=== PATIENT | male | born 1965 | race Caucasian/White ===

== ENCOUNTER 2020-11-28 17:11 | Inpatient (IN) ==
[2020-11-28 17:54] LABS: Basophils % 0.2 %; Hemoglobin 18.9 g/dL (12.9-16.9); Immature Granulocytes % 0.5 % (0-4); Lymphocytes # 0.5 K/mcL (0.6-4.6); Lymphocytes % 6.6 %; Mean Corpuscular HGB Conc 34.1 g/dL (31.6-35.5); Mean Corpuscular Hemoglobin 32.3 pg (28.0-33.3); Mean Corpuscular Volume 94.9 fL (83.0-100.0); Mean Platelet Volume 11.1 fL (9.4-12.4); Monocytes # 0.6 K/mcL (0.0-1.3); Monocytes % 7.5 %; Platelet Count 240 K/mcL (140-400); Red Blood Count 5.85 M/mcL (4.19-5.50); Red Cell Distribution Width 12.5 % (11.5-14.5); Segmented Neutrophils % 85.2 %; White Blood Count 8.2 K/mcL (4.3-11.1)
[2020-11-28 18:09] LABS: Hematocrit 55.5 % (37.5-50.1)
[2020-11-28 18:22] LABS: BUN/Creatinine Ratio 16 (6-26); Blood Urea Nitrogen 18 mg/dL (6-20); Calcium 8.7 mg/dL (8.6-10.3); Carbon Dioxide 26 mEq/L (23-29); Chloride 103 mEq/L (98-107); Glucose 126 mg/dL (70-105); Osmolality,Calculated 289 (280-300); Potassium 3.7 mEq/L (3.5-5.1); Sodium 138 mEq/L (136-145); eGFR For African Americans > 60 (> 60); eGFR For Non-African Americans > 60 (> 60)
[2020-11-28 18:45] LABS: Albumin 3.5 g/dL (3.5-5.7); Bilirubin,Direct 0.6 mg/dL (0.0-0.2); Bilirubin,Indirect 0.5 mg/dL (0.0-1.0); Bilirubin,Total 1.1 mg/dL (0.3-1.0); Globulin 3.5 g/dL (2.4-3.5); Magnesium 2.3 mg/dL (1.6-2.6); Phosphorous 2.2 mg/dL (2.7-4.5)
[2020-11-28 18:46] LABS: INR 1.2; Prothrombin Time 13.7 Seconds (9.4-12.1)
[2020-11-28 18:46] LABS: Troponin I 0.04 ng/mL (< 0.04)
[2020-11-28 18:48] LABS: Activated Partial Thrombo Time 32.6 Seconds (26.0-36.0)
[2020-11-28 18:56] LABS: Adenovirus Not Detected (Not Detect); Bordetella Pertussis Not Detected (Not Detect); Chlamydophila pneumoniae Not Detected (Not Detect); Coronavirus 229E Not Detected (Not Detect); Coronavirus HKU1 Not Detected (Not Detect); Coronavirus NL63 Not Detected (Not Detect); Coronavirus OC43 Not Detected (Not Detect); Human Metapneumovirus Not Detected (Not Detect); Human Rhinovirus/Enterovirus Not Detected (Not Detect); Influenza A Subtype 2009 H1 Not Detected (Not Detect); Influenza B Not Detected (Not Detect); Mycoplasma pneumoniae Not Detected (Not Detect); Parainfluenza Virus 1 Not Detected (Not Detect); Parainfluenza Virus 2 Not Detected (Not Detect); Parainfluenza Virus 3 Not Detected (Not Detect); Parainfluenza Virus 4 Not Detected (Not Detect); Respiratory Syncytial Virus Not Detected (Not Detect); SARS-CoV-2 DETECTED (Not Detect)
[2020-11-28] MEDS ORDERED: Azithromycin 500 MG in 0.9 % Sodium Chloride 250 ML IVPB ONE (19:19)
[2020-11-28] MEDS ORDERED: Perflutren Lipid Microsphere 1.3 ML in 0.9 % Sodium Chloride 8.7 ML IVP PRN (20:17)
[2020-11-28] MEDS ORDERED: Isovue-370 500 ML BOTTLE IVP ONE (20:17)
[2020-11-28] MEDS ORDERED: Aspirin 325 MG TABLET PO ONE (20:37)
[2020-11-28] MEDS ORDERED: Nitroglycerin 0.4 MG TAB.SUBL SL PRN (20:51)
[2020-11-28] MEDS ORDERED: Melatonin 3 MG TABLET PO PRN (23:27)
[2020-11-28] MEDS ORDERED: Ondansetron 4 MG/2 ML VIAL IVP PRN (23:27)
[2020-11-28] MEDS ORDERED: Naloxone 0.4 MG/ML INJ IVP PRN (23:27)
[2020-11-29 01:23] LABS: Estimated Average Glucose 114 mg/dl; Hemoglobin A1C 5.6 %
[2020-11-29 01:37] LABS: Hematocrit 52.3 % (37.5-50.1); Hemoglobin 17.5 g/dL (12.9-16.9); Mean Corpuscular HGB Conc 33.5 g/dL (31.6-35.5); Mean Corpuscular Hemoglobin 31.9 pg (28.0-33.3); Mean Corpuscular Volume 95.3 fL (83.0-100.0); Mean Platelet Volume 11.1 fL (9.4-12.4); Platelet Count 241 K/mcL (140-400); Red Blood Count 5.49 M/mcL (4.19-5.50); Red Cell Distribution Width 12.6 % (11.5-14.5); White Blood Count 7.4 K/mcL (4.3-11.1)
[2020-11-29 01:40] LABS: BUN/Creatinine Ratio 16 (6-26); Blood Urea Nitrogen 20 mg/dL (6-20); Calcium 8.5 mg/dL (8.6-10.3); Carbon Dioxide 25 mEq/L (23-29); Chloride 106 mEq/L (98-107); Glucose 139 mg/dL (70-105); Osmolality,Calculated 293 (280-300); Potassium 3.9 mEq/L (3.5-5.1); Sodium 139 mEq/L (136-145); eGFR For African Americans > 60 (> 60); eGFR For Non-African Americans > 60 (> 60)
[2020-11-29 01:43] LABS: C-Reactive Protein 189 mg/L (Less than 10); Lactate Dehydrogenase 486 Units/L (140-271)
[2020-11-29 01:59] LABS: Ferritin 1213 ng/mL (20-250)
[2020-11-29] MEDS ORDERED: *HR* Enoxaparin 40 MG/0.4 ML SYRINGE SQ SCH (06:00)
[2020-11-29 07:12] LABS: Troponin I 0.05 ng/mL (< 0.04)
[2020-11-29] MEDS ORDERED: *HR* Heparin 5,000 UNIT/ML VIAL IVP PRN ×2 (07:22)
[2020-11-29] MEDS ORDERED: *HR* Heparin 5,000 UNIT/ML VIAL IVP ONE (07:22)
[2020-11-29] MEDS: Aspirin 81 MG TAB.CHEW PO SCH (09:35)
[2020-11-29] MEDS: Heparin 25,000UNIT/250ML 1/2NS 25,000 UNIT/250 ML IV.SOLN IVC SCH (09:36)
[2020-11-29 09:39] LABS: Hematocrit 54.7 % (37.5-50.1); Hemoglobin 18.1 g/dL (12.9-16.9); Mean Corpuscular HGB Conc 33.1 g/dL (31.6-35.5); Mean Corpuscular Hemoglobin 32.3 pg (28.0-33.3); Mean Corpuscular Volume 97.5 fL (83.0-100.0); Mean Platelet Volume 10.9 fL (9.4-12.4); Platelet Count 248 K/mcL (140-400); Red Blood Count 5.61 M/mcL (4.19-5.50); Red Cell Distribution Width 12.7 % (11.5-14.5); White Blood Count 8.7 K/mcL (4.3-11.1)
[2020-11-29 10:00] LABS: Heparin anti-factor XA UFH 0.12 IU/mL (0.30-0.70); INR 1.2; Prothrombin Time 13.9 Seconds (9.4-12.1)
[2020-11-29 10:56] LABS: Albumin 3.4 g/dL (3.5-5.7); Albumin/Globulin Ratio 0.9 (1.1-2.2); Bilirubin,Direct 0.6 mg/dL (0.0-0.2); Bilirubin,Indirect 0.3 mg/dL (0.0-1.0); Bilirubin,Total 0.9 mg/dL (0.3-1.0); Globulin 3.6 g/dL (2.4-3.5)
[2020-11-29] MEDS: Ipratropium 1 PUFF INHALER IH PRN (16:08)
[2020-11-29] MEDS ORDERED: Remdesivir 200 MG in 0.9 % Sodium Chloride 100 ML IVPB ONE (18:00)
[2020-11-29] MEDS ORDERED: Furosemide 20 MG/2 ML VIAL IVP ONE (18:43)
[2020-11-29] MEDS ORDERED: Perflutren Lipid Microsphere 1.3 ML in 0.9 % Sodium Chloride 8.7 ML IVP PRN (18:44)
[2020-11-30 05:13] LABS: Basophils % 0.5 %; Hematocrit 52.3 % (37.5-50.1); Hemoglobin 17.6 g/dL (12.9-16.9); Immature Granulocytes % 0.6 % (0-4); Lymphocytes # 0.5 K/mcL (0.6-4.6); Lymphocytes % 6.1 %; Mean Corpuscular HGB Conc 33.7 g/dL (31.6-35.5); Mean Corpuscular Hemoglobin 32.7 pg (28.0-33.3); Mean Platelet Volume 11.1 fL (9.4-12.4); Monocytes # 0.6 K/mcL (0.0-1.3); Monocytes % 7.1 %; Platelet Count 334 K/mcL (140-400); Red Blood Count 5.39 M/mcL (4.19-5.50); Red Cell Distribution Width 13.2 % (11.5-14.5); Segmented Neutrophils % 85.7 %; White Blood Count 8.8 K/mcL (4.3-11.1)
[2020-11-30 05:23] LABS: Neutrophils # 7.5 K/mcL (1.6-8.9)
[2020-11-30 05:39] LABS: Albumin 3.2 g/dL (3.5-5.7); Albumin/Globulin Ratio 0.8 (1.1-2.2); Bilirubin,Direct 0.3 mg/dL (0.0-0.2); Bilirubin,Indirect 0.5 mg/dL (0.0-1.0); Bilirubin,Total 0.8 mg/dL (0.3-1.0); Calcium 8.9 mg/dL (8.6-10.3); Globulin 3.8 g/dL (2.4-3.5); Potassium 3.8 mEq/L (3.5-5.1)
[2020-11-30 05:43] LABS: Macrocytosis Present (Not Present); Platelet Estimate Normal (Normal); Toxic Granulation Present (Not Present)
[2020-11-30] MEDS: Heparin 25,000UNIT/250ML 1/2NS 25,000 UNIT/250 ML IV.SOLN IVC SCH ×2 (06:18→23:23)
[2020-11-30] MEDS: Cholecalciferol (D-3) 1,000 UNIT (25MCG) TABLET PO SCH (08:50)
[2020-11-30] MEDS: Aspirin 81 MG TAB.CHEW PO SCH (08:50)
[2020-11-30] MEDS: Dexmedetomidine HCl 400 MCG/100 ML MLS IVC SCH (09:24)
[2020-11-30] MEDS: Remdesivir 100 MG in 0.9 % Sodium Chloride 100 ML IVPB SCH (17:45)
[2020-12-01] MEDS: Ipratropium 1 PUFF INHALER IH PRN (00:05)
[2020-12-01] MEDS: Dexmedetomidine HCl 400 MCG/100 ML MLS IVC SCH ×2 (02:13→14:53)
[2020-12-01 03:45] LABS: Basophils % 0.4 %; Hematocrit 54.2 % (37.5-50.1); Hemoglobin 17.7 g/dL (12.9-16.9); Immature Granulocytes % 0.8 % (0-4); Lymphocytes # 0.5 K/mcL (0.6-4.6); Lymphocytes % 4.6 %; Mean Corpuscular HGB Conc 32.7 g/dL (31.6-35.5); Mean Corpuscular Hemoglobin 32.1 pg (28.0-33.3); Mean Corpuscular Volume 98.2 fL (83.0-100.0); Monocytes # 0.7 K/mcL (0.0-1.3); Monocytes % 6.4 %; Neutrophils # 9.9 K/mcL (1.6-8.9); Platelet Count 369 K/mcL (140-400); Red Blood Count 5.52 M/mcL (4.19-5.50); Segmented Neutrophils % 87.8 %; White Blood Count 11.3 K/mcL (4.3-11.1)
[2020-12-01 03:51] LABS: VBG HCO3 23 mEq/L (21-27); VBG PCO2 30 mmHg (41-51); VBG PH 7.49 pH Units (7.32-7.42); VBG PO2 107 mmHg (25-50)
[2020-12-01 03:59] LABS: Basophils # 0.1 K/mcL (0.0-0.2)
[2020-12-01 04:18] LABS: Large Platelets Present (Not Present); Platelet Estimate Normal (Normal); Reactive Lymphocytes Present (Not Present); Toxic Granulation Present (Not Present)
[2020-12-01 04:42] LABS: Alanine Aminotransferase 55 Units/L (7-52); Albumin/Globulin Ratio 0.7 (1.1-2.2); Alkaline Phosphatase 86 Units/L (34-104); Aspartate Amino Transferase 45 Units/L (13-39); Bilirubin,Direct 0.3 mg/dL (0.0-0.2); Bilirubin,Indirect 0.4 mg/dL (0.0-1.0); Bilirubin,Total 0.7 mg/dL (0.3-1.0); Calcium 8.6 mg/dL (8.6-10.3); Globulin 4.1 g/dL (2.4-3.5); Total Protein 7.1 g/dL (6.4-8.9); eGFR For African Americans > 60 (> 60); eGFR For Non-African Americans 52 (> 60)
[2020-12-01 04:43] LABS: BUN/Creatinine Ratio 33 (6-26); Blood Urea Nitrogen 47 mg/dL (6-20); Carbon Dioxide 18 mEq/L (23-29); Chloride 107 mEq/L (98-107); Glucose 136 mg/dL (70-105); Osmolality,Calculated 302 (280-300); Potassium 4.2 mEq/L (3.5-5.1); Sodium 139 mEq/L (136-145)
[2020-12-01] MEDS: Dexamethasone Sodium Phos/PF 10 MG/ML VIAL IVP SCH (09:04)
[2020-12-01] MEDS: Cholecalciferol (D-3) 1,000 UNIT (25MCG) TABLET PO SCH (09:05)
[2020-12-01] MEDS: Aspirin 81 MG TAB.CHEW PO SCH (09:05)
[2020-12-01 11:22] LABS: Fibrinogen 727 mg/dL (169-393)
[2020-12-01 11:23] LABS: D-Dimer 789 ng/mLFEU (0-500)
[2020-12-01] MEDS: *HR* Heparin 5,000 UNIT/ML VIAL SQ SCH ×2 (15:32→20:50)
[2020-12-01] MEDS: Remdesivir 100 MG in 0.9 % Sodium Chloride 100 ML IVPB SCH (18:38)
[2020-12-02 00:31] LABS: Bilirubin,Urine Negative (Negative); Blood,Urine Negative (Negative); Clarity,Urine Clear (Clear); Color,Urine Yellow (Yellow); Glucose,Urine (UA) Normal (Normal); Ketones,Urine Negative (Negative); Leukocyte Esterase,Urine Negative (Negative); Mucus,Urine Few per lpf (None-Few); Nitrite,Urine Negative (Negative); PH,Urine 5.5 pH Units (5.0-8.0); Protein,Urine 50 mg/dL (Neg-Trace); RBC,Urine 0-3 per hpf (0-3); Specific Gravity,Urine > 1.030 (1.010-1.025); Urobilinogen,Urine Normal (Normal); WBC,Urine 0-3 per hpf (0-3)
[2020-12-02] MEDS: Dexmedetomidine HCl 400 MCG/100 ML MLS IVC SCH ×2 (03:00→07:19)
[2020-12-02] MEDS: *HR* Heparin 5,000 UNIT/ML VIAL SQ SCH ×3 (05:39→21:17)
[2020-12-02] MEDS: Aspirin 81 MG TAB.CHEW PO SCH (08:54)
[2020-12-02] MEDS: Dexamethasone Sodium Phos/PF 10 MG/ML VIAL IVP SCH (08:55)
[2020-12-02] MEDS: Cholecalciferol (D-3) 1,000 UNIT (25MCG) TABLET PO SCH (08:55)
[2020-12-02 09:43] LABS: VBG HCO3 25 mEq/L (21-27); VBG PCO2 37 mmHg (41-51); VBG PH 7.43 pH Units (7.32-7.42); VBG PO2 118 mmHg (25-50)
[2020-12-02 09:54] LABS: Basophils % 0.3 %; Eosinophils % 0.1 %; Hemoglobin 17.6 g/dL (12.9-16.9); Immature Granulocytes % 0.6 % (0-4); Lymphocytes # 0.5 K/mcL (0.6-4.6); Lymphocytes % 3.7 %; Mean Corpuscular HGB Conc 32.6 g/dL (31.6-35.5); Mean Corpuscular Volume 98.2 fL (83.0-100.0); Mean Platelet Volume 10.9 fL (9.4-12.4); Monocytes % 7.3 %; Neutrophils # 11.7 K/mcL (1.6-8.9); Platelet Count 390 K/mcL (140-400); Red Cell Distribution Width 12.8 % (11.5-14.5); White Blood Count 13.2 K/mcL (4.3-11.1)
[2020-12-02 11:13] LABS: Albumin 2.9 g/dL (3.5-5.7); Albumin/Globulin Ratio 0.9 (1.1-2.2); Bilirubin,Direct 0.3 mg/dL (0.0-0.2); Bilirubin,Indirect 0.4 mg/dL (0.0-1.0); Bilirubin,Total 0.7 mg/dL (0.3-1.0); Globulin 3.2 g/dL (2.4-3.5); Total Protein 6.1 g/dL (6.4-8.9)
[2020-12-02 11:14] LABS: Alanine Aminotransferase 44 Units/L (7-52); Albumin 2.9 g/dL (3.5-5.7); Albumin/Globulin Ratio 0.9 (1.1-2.2); Alkaline Phosphatase 71 Units/L (34-104); Aspartate Amino Transferase 38 Units/L (13-39); BUN/Creatinine Ratio 35 (6-26); Bilirubin,Total 0.7 mg/dL (0.3-1.0); Blood Urea Nitrogen 46 mg/dL (6-20); Calcium 8.6 mg/dL (8.6-10.3); Carbon Dioxide 25 mEq/L (23-29); Chloride 109 mEq/L (98-107); Globulin 3.3 g/dL (2.4-3.5); Glucose 120 mg/dL (70-105); Osmolality,Calculated 305 (280-300); Sodium 141 mEq/L (136-145); Total Protein 6.2 g/dL (6.4-8.9); eGFR For African Americans > 60 (> 60); eGFR For Non-African Americans 57 (> 60)
[2020-12-02] MEDS: FLUoxetine HCl Oral Soln 20 MG/5 ML UDC PO SCH (12:33)
[2020-12-02] MEDS: Remdesivir 100 MG in 0.9 % Sodium Chloride 100 ML IVPB SCH (16:53)
[2020-12-02] MEDS ORDERED: Furosemide 20 MG/2 ML VIAL IVP ONE (17:45)
[2020-12-03] MEDS: *HR* Heparin 5,000 UNIT/ML VIAL SQ SCH ×3 (06:03→20:16)
[2020-12-03 08:09] LABS: Blood Urea Nitrogen 43 mg/dL (6-20); Calcium 8.3 mg/dL (8.6-10.3); Carbon Dioxide 27 mEq/L (23-29); Chloride 109 mEq/L (98-107); Glucose 123 mg/dL (70-105); Magnesium 2.5 mg/dL (1.6-2.6); Osmolality,Calculated 304 (280-300); Phosphorous 3.5 mg/dL (2.7-4.5); Potassium 4.2 mEq/L (3.5-5.1); Sodium 141 mEq/L (136-145)
[2020-12-03 08:20] LABS: VBG HCO3 28 mEq/L (21-27); VBG PCO2 43 mmHg (41-51); VBG PH 7.42 pH Units (7.32-7.42); VBG PO2 153 mmHg (25-50)
[2020-12-03 08:24] LABS: Basophils % 0.2 %; Eosinophils % 0.1 %; Hemoglobin 17.1 g/dL (12.9-16.9); Immature Granulocytes % 0.6 % (0-4); Lymphocytes # 0.5 K/mcL (0.6-4.6); Lymphocytes % 3.8 %; Mean Corpuscular HGB Conc 32.9 g/dL (31.6-35.5); Mean Corpuscular Volume 97.4 fL (83.0-100.0); Mean Platelet Volume 11.1 fL (9.4-12.4); Monocytes # 0.9 K/mcL (0.0-1.3); Monocytes % 6.6 %; Neutrophils # 12.3 K/mcL (1.6-8.9); Platelet Count 374 K/mcL (140-400); Red Blood Count 5.34 M/mcL (4.19-5.50); Red Cell Distribution Width 12.6 % (11.5-14.5); Segmented Neutrophils % 88.7 %; White Blood Count 13.9 K/mcL (4.3-11.1)
[2020-12-03 08:52] LABS: BUN/Creatinine Ratio 34 (6-26); eGFR For African Americans > 60 (> 60); eGFR For Non-African Americans > 60 (> 60)
[2020-12-03] MEDS: Dexmedetomidine HCl 400 MCG/100 ML MLS IVC SCH ×2 (09:17→20:16)
[2020-12-03] MEDS: Dexamethasone Sodium Phos/PF 10 MG/ML VIAL IVP SCH (09:17)
[2020-12-03] MEDS: FLUoxetine HCl Oral Soln 20 MG/5 ML UDC PO SCH (09:17)
[2020-12-03] MEDS: Aspirin 81 MG TAB.CHEW PO SCH (09:18)
[2020-12-03] MEDS: Cholecalciferol (D-3) 1,000 UNIT (25MCG) TABLET PO SCH (09:18)
[2020-12-03 09:41] LABS: Albumin 2.8 g/dL (3.5-5.7); Albumin/Globulin Ratio 0.9 (1.1-2.2); Bilirubin,Direct 0.2 mg/dL (0.0-0.2); Bilirubin,Indirect 0.6 mg/dL (0.0-1.0); Bilirubin,Total 0.8 mg/dL (0.3-1.0); Total Protein 5.8 g/dL (6.4-8.9)
[2020-12-03] MEDS: Remdesivir 100 MG in 0.9 % Sodium Chloride 100 ML IVPB SCH (17:26)
[2020-12-03] MEDS ORDERED: Furosemide 20 MG/2 ML VIAL IVP ONE (18:14)
[2020-12-04] MEDS ORDERED: GuaiFENesin Liq 200 MG/10 ML UDC PO PRN (03:14)
[2020-12-04] MEDS ORDERED: Benzonatate 100 MG CAPSULE PO PRN (03:29)
[2020-12-04] MEDS: *HR* Heparin 5,000 UNIT/ML VIAL SQ SCH ×3 (05:38→20:37)
[2020-12-04] MEDS: FLUoxetine HCl Oral Soln 20 MG/5 ML UDC PO SCH (07:58)
[2020-12-04] MEDS: Dexamethasone Sodium Phos/PF 10 MG/ML VIAL IVP SCH (07:58)
[2020-12-04] MEDS: Cholecalciferol (D-3) 1,000 UNIT (25MCG) TABLET PO SCH (07:58)
[2020-12-04] MEDS: Aspirin 81 MG TAB.CHEW PO SCH (07:58)
[2020-12-04 08:33] LABS: Basophils % 0.2 %; Eosinophils # 0.1 K/mcL (0.0-0.6); Eosinophils % 0.4 %; Hematocrit 50.8 % (37.5-50.1); Hemoglobin 17.1 g/dL (12.9-16.9); Immature Granulocytes % 0.5 % (0-4); Lymphocytes # 0.5 K/mcL (0.6-4.6); Lymphocytes % 3.9 %; Mean Corpuscular HGB Conc 33.7 g/dL (31.6-35.5); Mean Corpuscular Hemoglobin 33.4 pg (28.0-33.3); Mean Corpuscular Volume 99.2 fL (83.0-100.0); Monocytes # 0.8 K/mcL (0.0-1.3); Monocytes % 6.2 %; Neutrophils # 11.8 K/mcL (1.6-8.9); Platelet Count 277 K/mcL (140-400); Red Blood Count 5.12 M/mcL (4.19-5.50); Red Cell Distribution Width 12.4 % (11.5-14.5); Segmented Neutrophils % 88.8 %; White Blood Count 13.2 K/mcL (4.3-11.1)
[2020-12-04 08:41] LABS: VBG HCO3 27 mEq/L (21-27); VBG Ionized Calcium 1.12 mmol/L (1.15-1.35); VBG PCO2 44 mmHg (41-51); VBG PO2 190 mmHg (25-50)
[2020-12-04 08:46] LABS: INR 1.1; Prothrombin Time 13.2 Seconds (9.4-12.1)
[2020-12-04 08:48] LABS: Activated Partial Thrombo Time 28.5 Seconds (26.0-36.0)
[2020-12-04 08:53] LABS: Alanine Aminotransferase 50 Units/L (7-52); Albumin 2.8 g/dL (3.5-5.7); Albumin/Globulin Ratio 1.1 (1.1-2.2); Alkaline Phosphatase 61 Units/L (34-104); Aspartate Amino Transferase 27 Units/L (13-39); BUN/Creatinine Ratio 32 (6-26); Bilirubin,Direct 0.1 mg/dL (0.0-0.2); Bilirubin,Indirect 0.7 mg/dL (0.0-1.0); Bilirubin,Total 0.8 mg/dL (0.3-1.0); Blood Urea Nitrogen 44 mg/dL (6-20); Calcium 8.3 mg/dL (8.6-10.3); Carbon Dioxide 27 mEq/L (23-29); Chloride 107 mEq/L (98-107); Globulin 2.5 g/dL (2.4-3.5); Glucose 119 mg/dL (70-105); Magnesium 2.4 mg/dL (1.6-2.6); Osmolality,Calculated 298 (280-300); Phosphorous 3.5 mg/dL (2.7-4.5); Potassium 4.2 mEq/L (3.5-5.1); Sodium 138 mEq/L (136-145); Total Protein 5.3 g/dL (6.4-8.9); eGFR For African Americans > 60 (> 60); eGFR For Non-African Americans 53 (> 60)
[2020-12-04] MEDS ORDERED: Nitroglycerin 0.4 MG TAB.SUBL SL PRN (11:49)
[2020-12-04] MEDS ORDERED: Ipratropium 1 PUFF INHALER IH PRN (11:49)
[2020-12-04] MEDS ORDERED: Naloxone 0.4 MG/ML INJ IVP PRN (11:49)
[2020-12-04] MEDS ORDERED: Ondansetron 4 MG/2 ML VIAL IVP PRN (11:49)
[2020-12-04] MEDS ORDERED: Melatonin 3 MG TABLET PO PRN (11:49)
[2020-12-05 01:42] LABS: VBG Ionized Calcium 1.19 mmol/L (1.15-1.35)
[2020-12-05 01:42] LABS: Basophils % 0.1 %; Hemoglobin 16.7 g/dL (12.9-16.9); Immature Granulocytes % 0.9 % (0-4); Lymphocytes # 0.5 K/mcL (0.6-4.6); Lymphocytes % 3.5 %; Mean Corpuscular HGB Conc 32.7 g/dL (31.6-35.5); Mean Corpuscular Hemoglobin 31.4 pg (28.0-33.3); Mean Corpuscular Volume 95.9 fL (83.0-100.0); Monocytes # 0.7 K/mcL (0.0-1.3); Monocytes % 4.9 %; Neutrophils # 13.6 K/mcL (1.6-8.9); Platelet Count 340 K/mcL (140-400); Red Blood Count 5.32 M/mcL (4.19-5.50); Red Cell Distribution Width 12.4 % (11.5-14.5); Segmented Neutrophils % 90.6 %
[2020-12-05 02:05] LABS: Alanine Aminotransferase 44 Units/L (7-52); Albumin 2.9 g/dL (3.5-5.7); Alkaline Phosphatase 63 Units/L (34-104); Aspartate Amino Transferase 24 Units/L (13-39); BUN/Creatinine Ratio 31 (6-26); Bilirubin,Total 0.7 mg/dL (0.3-1.0); Blood Urea Nitrogen 40 mg/dL (6-20); Calcium 8.4 mg/dL (8.6-10.3); Carbon Dioxide 27 mEq/L (23-29); Chloride 105 mEq/L (98-107); Globulin 2.8 g/dL (2.4-3.5); Glucose 154 mg/dL (70-105); Magnesium 2.5 mg/dL (1.6-2.6); Osmolality,Calculated 297 (280-300); Phosphorous 3.5 mg/dL (2.7-4.5); Potassium 4.8 mEq/L (3.5-5.1); Sodium 137 mEq/L (136-145); Total Protein 5.7 g/dL (6.4-8.9); eGFR For African Americans > 60 (> 60); eGFR For Non-African Americans 59 (> 60)
[2020-12-05] MEDS: *HR* Heparin 5,000 UNIT/ML VIAL SQ SCH ×3 (05:33→21:39)
[2020-12-05] MEDS: Dexamethasone Sodium Phos/PF 10 MG/ML VIAL IVP SCH (07:34)
[2020-12-05] MEDS: FLUoxetine HCl Oral Soln 20 MG/5 ML UDC PO SCH (07:34)
[2020-12-05] MEDS: Aspirin 81 MG TAB.CHEW PO SCH (07:34)
[2020-12-05] MEDS: Cholecalciferol (D-3) 1,000 UNIT (25MCG) TABLET PO SCH (07:34)
[2020-12-05] MEDS ORDERED: Dexamethasone Sodium Phos/PF 10 MG/ML VIAL IVP SCH (09:00)
[2020-12-06 01:32] LABS: Hematocrit 51.3 % (37.5-50.1); Hemoglobin 17.3 g/dL (12.9-16.9); Mean Corpuscular HGB Conc 33.7 g/dL (31.6-35.5); Mean Corpuscular Hemoglobin 32.4 pg (28.0-33.3); Mean Corpuscular Volume 96.1 fL (83.0-100.0); Mean Platelet Volume 11.2 fL (9.4-12.4); Platelet Count 310 K/mcL (140-400); Red Blood Count 5.34 M/mcL (4.19-5.50); Red Cell Distribution Width 12.3 % (11.5-14.5); White Blood Count 13.5 K/mcL (4.3-11.1)
[2020-12-06 01:35] LABS: BUN/Creatinine Ratio 28 (6-26); Blood Urea Nitrogen 41 mg/dL (6-20); Calcium 8.6 mg/dL (8.6-10.3); Carbon Dioxide 25 mEq/L (23-29); Chloride 105 mEq/L (98-107); Glucose 144 mg/dL (70-105); Osmolality,Calculated 297 (280-300); Potassium 4.4 mEq/L (3.5-5.1); Sodium 137 mEq/L (136-145); eGFR For African Americans > 60 (> 60); eGFR For Non-African Americans 51 (> 60)
[2020-12-06] MEDS: *HR* Heparin 5,000 UNIT/ML VIAL SQ SCH ×3 (05:12→21:32)
[2020-12-06] MEDS: Cholecalciferol (D-3) 1,000 UNIT (25MCG) TABLET PO SCH (07:26)
[2020-12-06] MEDS: Aspirin 81 MG TAB.CHEW PO SCH (07:26)
[2020-12-06] MEDS: Dexamethasone Sodium Phos/PF 10 MG/ML VIAL IVP SCH (07:27)
[2020-12-06] MEDS: FLUoxetine HCl Oral Soln 20 MG/5 ML UDC PO SCH (07:27)
[2020-12-07] MEDS: *HR* Heparin 5,000 UNIT/ML VIAL SQ SCH ×3 (05:14→22:03)
[2020-12-07] MEDS: Cholecalciferol (D-3) 1,000 UNIT (25MCG) TABLET PO SCH (07:30)
[2020-12-07] MEDS: Aspirin 81 MG TAB.CHEW PO SCH (07:30)
[2020-12-07] MEDS: Dexamethasone Sodium Phos/PF 10 MG/ML VIAL IVP SCH (07:30)
[2020-12-07] MEDS: FLUoxetine HCl Oral Soln 20 MG/5 ML UDC PO SCH (07:30)
[2020-12-07] MEDS: Furosemide 20 MG/2 ML VIAL IVP SCH ×2 (15:31→20:36)
[2020-12-08] MEDS: *HR* Heparin 5,000 UNIT/ML VIAL SQ SCH ×3 (05:09→20:44)
[2020-12-08 05:33] LABS: Hematocrit 54.7 % (37.5-50.1); Hemoglobin 18.8 g/dL (12.9-16.9); Mean Corpuscular HGB Conc 34.4 g/dL (31.6-35.5); Mean Corpuscular Hemoglobin 32.6 pg (28.0-33.3); Mean Corpuscular Volume 94.8 fL (83.0-100.0); Mean Platelet Volume 11.3 fL (9.4-12.4); Platelet Count 289 K/mcL (140-400); Red Blood Count 5.77 M/mcL (4.19-5.50); Red Cell Distribution Width 12.1 % (11.5-14.5); White Blood Count 15.9 K/mcL (4.3-11.1)
[2020-12-08 05:50] LABS: Calcium 9.9 mg/dL (8.6-10.3); Potassium 4.6 mEq/L (3.5-5.1)
[2020-12-08] MEDS: Aspirin 81 MG TAB.CHEW PO SCH (09:34)
[2020-12-08] MEDS: Furosemide 20 MG/2 ML VIAL IVP SCH ×2 (09:34→20:44)
[2020-12-08] MEDS: FLUoxetine HCl Oral Soln 20 MG/5 ML UDC PO SCH (09:35)
[2020-12-08] MEDS: Dexamethasone Sodium Phos/PF 10 MG/ML VIAL IVP SCH (09:35)
[2020-12-08] MEDS: Cholecalciferol (D-3) 1,000 UNIT (25MCG) TABLET PO SCH (09:35)
[2020-12-09 02:55] LABS: Hematocrit 50.2 % (37.5-50.1); Hemoglobin 17.3 g/dL (12.9-16.9); Mean Corpuscular HGB Conc 34.5 g/dL (31.6-35.5); Mean Corpuscular Hemoglobin 32.3 pg (28.0-33.3); Mean Corpuscular Volume 93.7 fL (83.0-100.0); Mean Platelet Volume 11.8 fL (9.4-12.4); Platelet Count 275 K/mcL (140-400); Red Blood Count 5.36 M/mcL (4.19-5.50); Red Cell Distribution Width 11.9 % (11.5-14.5); White Blood Count 17.8 K/mcL (4.3-11.1)
[2020-12-09 03:11] LABS: BUN/Creatinine Ratio 35 (6-26); Blood Urea Nitrogen 49 mg/dL (6-20); Calcium 9.7 mg/dL (8.6-10.3); Carbon Dioxide 33 mEq/L (23-29); Chloride 98 mEq/L (98-107); Glucose 235 mg/dL (70-105); Osmolality,Calculated 303 (280-300); Potassium 4.7 mEq/L (3.5-5.1); Sodium 136 mEq/L (136-145); eGFR For African Americans > 60 (> 60); eGFR For Non-African Americans 52 (> 60)
[2020-12-09] MEDS: *HR* Heparin 5,000 UNIT/ML VIAL SQ SCH ×3 (06:07→20:07)
[2020-12-09] MEDS: Cholecalciferol (D-3) 1,000 UNIT (25MCG) TABLET PO SCH (10:25)
[2020-12-09] MEDS: FLUoxetine HCl Oral Soln 20 MG/5 ML UDC PO SCH (10:25)
[2020-12-09] MEDS: Furosemide 20 MG/2 ML VIAL IVP SCH ×2 (10:25→20:06)
[2020-12-09] MEDS: Aspirin 81 MG TAB.CHEW PO SCH (10:25)
[2020-12-09] MEDS: Dexamethasone Sodium Phos/PF 10 MG/ML VIAL IVP SCH (10:26)
[2020-12-10] MEDS: *HR* Heparin 5,000 UNIT/ML VIAL SQ SCH ×3 (06:17→21:16)
[2020-12-10 06:30] LABS: Hematocrit 50.4 % (37.5-50.1); Hemoglobin 17.1 g/dL (12.9-16.9); Mean Corpuscular HGB Conc 33.9 g/dL (31.6-35.5); Mean Corpuscular Hemoglobin 32.3 pg (28.0-33.3); Mean Corpuscular Volume 95.3 fL (83.0-100.0); Mean Platelet Volume 11.7 fL (9.4-12.4); Platelet Count 225 K/mcL (140-400); Red Blood Count 5.29 M/mcL (4.19-5.50); Red Cell Distribution Width 11.9 % (11.5-14.5); White Blood Count 19.8 K/mcL (4.3-11.1)
[2020-12-10 06:47] LABS: BUN/Creatinine Ratio 38 (6-26); Blood Urea Nitrogen 50 mg/dL (6-20); Calcium 9.6 mg/dL (8.6-10.3); Carbon Dioxide 39 mEq/L (23-29); Chloride 98 mEq/L (98-107); Glucose 177 mg/dL (70-105); Magnesium 2.4 mg/dL (1.6-2.6); Osmolality,Calculated 308 (280-300); Potassium 4.7 mEq/L (3.5-5.1); Sodium 140 mEq/L (136-145); eGFR For African Americans > 60 (> 60); eGFR For Non-African Americans 57 (> 60)
[2020-12-10] MEDS: dexAMETHasone 4 MG TABLET PO SCH (09:28)
[2020-12-10] MEDS: Furosemide 20 MG/2 ML VIAL IVP SCH ×2 (09:28→21:16)
[2020-12-10] MEDS: Cholecalciferol (D-3) 1,000 UNIT (25MCG) TABLET PO SCH (09:28)
[2020-12-10] MEDS: Aspirin 81 MG TAB.CHEW PO SCH (09:28)
[2020-12-10] MEDS: FLUoxetine HCl Oral Soln 20 MG/5 ML UDC PO SCH (09:30)
[2020-12-11] MEDS: *HR* Heparin 5,000 UNIT/ML VIAL SQ SCH ×3 (05:33→20:27)
[2020-12-11] MEDS: Cholecalciferol (D-3) 1,000 UNIT (25MCG) TABLET PO SCH (08:34)
[2020-12-11] MEDS: Aspirin 81 MG TAB.CHEW PO SCH (08:35)
[2020-12-11] MEDS: dexAMETHasone 4 MG TABLET PO SCH (08:35)
[2020-12-11] MEDS: Furosemide 20 MG/2 ML VIAL IVP SCH ×2 (08:35→20:28)
[2020-12-11] MEDS ORDERED: FLUoxetine 20 MG CAPSULE PO SCH (09:00)
[2020-12-11] MEDS ORDERED: Saline Nasal Spray 44 ML BOTTLE NS PRN (16:31)
[2020-12-12] MEDS: *HR* Heparin 5,000 UNIT/ML VIAL SQ SCH ×3 (05:36→21:06)
[2020-12-12] MEDS: Cholecalciferol (D-3) 1,000 UNIT (25MCG) TABLET PO SCH (09:09)
[2020-12-12] MEDS: FLUoxetine 20 MG CAPSULE PO SCH (09:09)
[2020-12-12] MEDS: dexAMETHasone 4 MG TABLET PO SCH (09:09)
[2020-12-12] MEDS: Aspirin 81 MG TAB.CHEW PO SCH (09:09)
[2020-12-12] MEDS: Furosemide 20 MG/2 ML VIAL IVP SCH ×2 (09:09→21:08)
[2020-12-12 12:14] LABS: Hematocrit 49.5 % (37.5-50.1); Hemoglobin 16.5 g/dL (12.9-16.9); Mean Corpuscular HGB Conc 33.3 g/dL (31.6-35.5); Mean Corpuscular Hemoglobin 32.2 pg (28.0-33.3); Mean Corpuscular Volume 96.5 fL (83.0-100.0); Mean Platelet Volume 11.6 fL (9.4-12.4); Platelet Count 191 K/mcL (140-400); Red Blood Count 5.13 M/mcL (4.19-5.50); White Blood Count 17.5 K/mcL (4.3-11.1)
[2020-12-12 12:34] LABS: BUN/Creatinine Ratio 37 (6-26); Blood Urea Nitrogen 54 mg/dL (6-20); Calcium 9.4 mg/dL (8.6-10.3); Carbon Dioxide 41 mEq/L (23-29); Chloride 91 mEq/L (98-107); Glucose 252 mg/dL (70-105); Osmolality,Calculated 303 (280-300); Potassium 4.5 mEq/L (3.5-5.1); Sodium 135 mEq/L (136-145); eGFR For African Americans > 60 (> 60); eGFR For Non-African Americans 50 (> 60)
[2020-12-13] MEDS: *HR* Heparin 5,000 UNIT/ML VIAL SQ SCH (04:54)
[2020-12-13 07:30] VITALS: BP 127/73; TEMP 97.5
[2020-12-13 07:37] VITALS: PULSE 52
[2020-12-13] MEDS: Cholecalciferol (D-3) 1,000 UNIT (25MCG) TABLET PO SCH (07:54)
[2020-12-13] MEDS: dexAMETHasone 4 MG TABLET PO SCH (07:55)
[2020-12-13] MEDS: Furosemide 20 MG/2 ML VIAL IVP SCH (07:55)
[2020-12-13] MEDS: FLUoxetine 20 MG CAPSULE PO SCH (07:55)
[2020-12-13] MEDS: Aspirin 81 MG TAB.CHEW PO SCH (07:55)
[2020-12-13 08:14] VITALS: O2SAT 90
== END 2020-12-13 14:17 | disposition home or self-care (01) | DRG 871 ==
LOC: EMEROOARM 17:11 → 2ANU 17:11 → OBSVTOIN 22:08 → SUATTDRO 22:08 → 2ANU 23:12 → ICNU 11-29 19:22 → 2NNU 12-04 11:02 → 2ANU 12-08 14:00
PROVIDERS: ADMIT Student in an Organized Health Care Education/Training Program; ATTEND Internal Medicine